=== PATIENT | male | born 1990 | race Caucasian/White ===

== ENCOUNTER 2018-12-16 19:54 | Emergency (ER) | payer OTHER ==
[~2018-12-16] VITALS: Ht 188 cm; Wt 77.0 kg
[2018-12-16] MEDS ORDERED: IBUPROFEN600 MG PO (22:49)
[2018-12-16 23:45] VITALS: BP 124/71
== END 2018-12-16 23:45 | DRG 605 ==
LOC: ED 19:54
PROC: 0HQ1XZZ Repair Face Skin, External Approach (ICD-10-PCS; principal; 2018-12-16)
DX: S01.81XA Laceration without foreign body of other part of head, initial encounter (principal); S00.531A Contusion of lip, initial encounter; Y04.8XXA Assault by other bodily force, initial encounter; X99.8XXA Assault by other sharp object, initial encounter; Y92.148 Other place in prison as the place of occurrence of the external cause